=== PATIENT | male | born 1995 | race Caucasian/White ===

== ENCOUNTER → 2017-10-24 | Outpatient (REF) | payer OTHER ==
[~2017-10-24] MED LIST: CETI1TAB80 PO; DICY-42 PO; DOXY-228 PO; HYDR-4309 PO; METH-543 PO; PANT40TA65 PO; POLY119P24 PO; PROM-110 PO
== END ==
LOC: ZZSENDIN 20:04
PROVIDERS: ATTEND Physician Assistant Medical
DX: Z20.2 Contact with and (suspected) exposure to infections with a predominantly sexual mode of transmission (principal)
CPT/HCPCS: 87491; 87591

== ENCOUNTER → 2017-10-24 | Outpatient (REF) | payer OTHER | PROVIDERS: ATTEND Physician Assistant Medical | DX: Z20.2 Contact with and (suspected) exposure to infections with a predominantly sexual mode of transmission (principal) | CPT/HCPCS: 86592; 86703; 86803 ==